=== PATIENT | male | born 1955 | race Caucasian/White ===

== ENCOUNTER 2024-10-30 17:28 | Inpatient (IN) | payer MEDICARE, OTHER, SELFPAY ==
[2024-10-30] VITALS (7 sets, daily range): BP systolic 117–139; BP diastolic 63–89; BMI 36.1; BMI 35.2
[2024-10-30 12:55] LABS: Urine Character Slightly Cloudy (Clear)
[2024-10-30 13:09] LABS: Urine Red Blood Cell 60-70 /HPF (0-2)
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
[2024-10-30 14:18] LABS: Hematocrit 44.8 % (39.0-52.0); Hemoglobin 15.5 g/dL (13.0-18.0); INR 0.99; Mean Corp Hgb Conc. 34.6 g/dL (33.0-37.0); Mean Corpuscular Volume 94.1 fL (80.0-94.0); Nucleated Red Blood Cells % 0 % (-); PT 13.4 Sec (11.4-14.6); Platelet Count 250 10^3/uL (130-400); Red Cell Dist. Width 13.1 % (11.5-14.5)
[2024-10-30 14:36] LABS: Blood Urea Nitrogen 32 mg/dl (9-20); Calcium 10.0 mg/dl (8.4-10.2); Carbon Dioxide 27 mmol/L (22-30); Chloride 106 mmol/L (98-107); Estimated Creatinine Clearance > 125 ml/min; Glucose 107 mg/dl (70-99); Sodium 137 mmol/L (135-145); eGFR > 60.00
[2024-10-30] MEDS: ZANAFLEX 8 MG PO (14:46)
--- NOTE | 2024-10-30 16:54 | HPS.HSE ---
Family Physician
-
Family Physician: NOT KNOW UNKNOWN - PT DOES
Chief Complaint
-
bladder spasm
hematuria.
History of Present Illness
69-year-old male with history of spinal cord injury with subsequent T9 paraplegia, neurogenic bladder, and diabetes presenting to the emergency department for hematuria. Patient reports over the weekend he has been having gross hematuria and
bladder spasms. he got colonoscopy last week, he had Downey in place for three days. he removed Downey on . He reports that he straight caths himself due to his neurogenic bladder about 4 times a day. For the past few days, has been having
to straight cath himself about every 3 hours due to bladder spasms and discomfort. Denies fever. Denies any significant pain to the abdomen or the back. Denies weakness or lightheadedness. denied chest pain, sob. denied abdominal pain,n,v,d.
positive UA in the ER. Downey placed in the ER. Received cefepime in the ER. Admitting for further med
Medical History
Past Medical History
Past Medical History: Reports Other
Additional Past Medical History:
Osteoporosis
Osteopenia
DVT
GERD
Paraplegia
Hypertension
Hypercholesterolemia
MSSA
Type 2 diabetes
Past Surgical History: Reports Other
Additional Past Surgical History:
Right shoulder replacement
Tricep tendon repair
Cholecystectomy
Penile implants
Social History
Tobacco: Former Smoker
Alcohol: None
Drug: None
Family History
Family History: Not pertinent
Allergies / Home Medications
Allergies reflects when Allergies were last updated in [facility].
Home Medications with original date entered in [facility]
Allergy/Medication List:
Allergies
Allergy/AdvReac Type Severity Reaction Status Date / Time
No Known Allergies Allergy Verified 10/30/24 12:34
Home Medications
diazepam 5 mg tablet 2.5 - 5 mg PO HSPRN PRN sleep 12/04/14
atorvastatin 40 mg tablet 40 mg PO HS High cholesterol 08/23/19
baclofen 10 mg tablet 5 mg PO Q6HPRN PRN spasm 08/23/19
duloxetine 60 mg capsule,delayed release 60 mg PO BID Mental Health/Anxiety 08/23/19
lamotrigine 100 mg tablet 100 mg PO BID Neurological Condition 08/23/19
methenamine hippurate 1 gram tablet 1 g PO BID Infection prevention 08/23/19
oxybutynin chloride 5 mg tablet 5 mg PO TID Urinary issue 08/23/19
tizanidine 4 mg tablet 8 mg PO BID@1100,1500 Muscle spasm/pain 08/23/19
zolpidem 10 mg tablet 10 mg PO HS Sleep 08/23/19
apixaban 5 mg tablet (Eliquis) 5 mg PO BID Blood clot prevention/tx 08/24/19
gabapentin 300 mg capsule 800 mg PO TID Neurological Condition 01/01/20
atenolol 25 mg tablet 25 mg PO DAILY #30 tabs 01/06/20
bupropion HCl 150 mg 24 hr tablet, extended release 150 mg PO DAILY Mental Health/Anxiety 05/05/20
cholecalciferol (vitamin D3) 50 mcg (2,000 unit) capsule (Vitamin D3) 50 mcg PO DAILY Supplement 05/05/20
lisinopril 20 mg-hydrochlorothiazide 12.5 mg tablet 1 ea PO DAILY Blood pressure 05/05/20
sitagliptin phos 100 mg-metformin ER 1,000 mg tablet,extend rel 24h mp (Janumet XR) 1 ea PO QPM Diabetes 05/05/20
tizanidine 4 mg tablet 16 mg PO HS Muscle spasms 05/05/20
Review of Systems
-
Constitutional: Reports No Symptoms
EENT: Reports No Symptoms
Respiratory: Reports No Symptoms
Cardiac: Reports No Symptoms
Abdomen/GI: Reports No Symptoms
: Reports Dark Urine
Musculoskeletal: Reports No Symptoms
Skin: Reports No Symptoms
Neurological: Reports No Symptoms
Endocrine: Reports No Symptoms
Hematologic/Lymphatic: Reports No Symptoms
Psych: Reports No Symptoms
Physical Exam
Vital Signs
Vital Signs
Temp Pulse Resp BP Pulse Ox
98.5 F 61 16 120/63 98
10/30/24 12:29 10/30/24 14:41 10/30/24 12:29 10/30/24 14:39 10/30/24 14:39
Physical Exam
General: Well Developed, Well Nourished and No Apparent Distress
HEENT: NormoCephalic, Moist mucous membranes and Atraumatic
Respiratory: Clear
Cardiac: S1/S2 and Regular Rhythm; No Murmur or Rub
GI: Soft, Non Tender, Non Distended and Normal Bowel Sounds; No Organomegaly
Rectal: Deferred by Provider
Musculoskeletal: No Clubbing, No Cyanosis and No Edema
Skin: No Rash
Neuro: AO x 3 and Nonfocal/grossly intact
Psych: Calm
Laboratory Results
-
10/30/24 13:58
10/30/24 13:58
Laboratory Results
PT 13.4 Sec (11.4-14.6) 10/30/24 13:58
INR 0.99 10/30/24 13:58
Total Bilirubin Cancelled 10/30/24 13:58
AST Cancelled 10/30/24 13:58
ALT Cancelled 10/30/24 13:58
Alkaline Phosphatase Cancelled 10/30/24 13:58
Data Reviewed
-
CT Scan: Report Reviewed by me
Lab Data: Labs Reviewed by me
Impression/Plan
-
# Hematuria secondary to UTI
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
- Downey placed in the ER
-IV cefepime continue
-Hold Eliquis
- CT abdomen pelvis with impression no acute intra-abdominal process identified.Right lower lobe 7 mm nodule. Minimally larger as compared to 2020, compatible with benign etiology. Hepatic fatty infiltration. Post cholecystectomy.Post partial
resection left colon with left-sided colostomy. No bowel obstruction.Urinary bladder decompressed with Downey catheter in position.
# History for splenic injury with lower extremities paraplegia
- Gabapentin continued
# Paroxysmal A-fib
- Obtain EKG
- Atenolol continued
- Hold Eliquis
# Hyperlipidemia
- Atorvastatin continued
# Anxiety
- Bupropion, duloxetine, Lamictal continued
- Diazepam continue for sleep
# Type 2 diabetes
- Sliding scale, CHO diet
- Hold Ozempic
# Essential hypertension
- Lisinopril/HCTZ continued
# Colostomy in place
# DVT prophylaxis SCDs
# CODE STATUS
- Full code
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
--- NOTE | 2024-10-30 17:39 | PHANOTE ---
MED REC NOTE PATIENT HAS NO ECW RECORDS, PDMP [facility], CALLED OVER FOR A MED LIST. PHARMACY THERE WILL FAX IT OVER TO [facility]. AWAITING FAX IF NO FAX WILL CALL BACK AND GET VERBAL OVER PHONE TO VERIFY GABAPENTIN AND
LISINOPRIL/HCTZ
[2024-10-30] MEDS: MAXIPIME 2000 MG IV (18:53)
--- NOTE | 2024-10-30 19:34 | CONS.URO ---
Consultation
-
Date/Time Consultation Performed: 1829
Performing Provider: Winnie
Reason for Consultation: Hematuria
Medical History
History of Present Illness
69M hx of spinal cord injury with subsequent T9 paraplegia, neurogenic bladder managed chronically with CIC, and diabetes presenting to the emergency department for hematuria.
He reports that he straight caths himself due to his neurogenic bladder about 4 times a day.
Managed in the past by Dr. Jesus
Patient reports over the weekend he has been having gross hematuria and bladder spasms.
He had a Jolley in place for three days around the time of a colonoscopy. Following colonoscopy he removed the Jolley on .
Starting Wednesday has been having to straight cath himself about every 3 hours due to bladder spasms and discomfort. This is consistent with prior episodes of UTI other than fever, which he denies
Denies any significant pain to the abdomen or the back. Denies weakness or lightheadedness. denied chest pain, sob. denied abdominal pain,n,v,d.
positive UA in the ER. Jolley placed in the ER to further assess hematuria
Received cefepime for presumed complicated UTI
CT showed no collection or abscess. No obstruction, catheter in place in decompressed bladder
Admitted by hospitalist
Urology consulted for hematuria which resolved quickly after catheter placement
AC on Eliquis which was held for colonoscopy but resumed after
Allergies/Home Medications
Allergies
Allergy/AdvReac Type Severity Reaction Status Date / Time
No Known Allergies Allergy Verified 10/30/24 12:34
Home Medications
�Medication �Instructions �Recorded �Confirmed �Type
diazepam 5 mg tablet 2.5 - 5 mg PO HSPRN PRN sleep 12/04/14 10/30/24 History
atorvastatin 40 mg tablet 40 mg PO HS High cholesterol 08/23/19 10/30/24 History
baclofen 10 mg tablet 5 mg PO Q6HPRN PRN spasm 08/23/19 10/30/24 History
duloxetine 60 mg capsule,delayed 60 mg PO DAILY Mental 08/23/19 10/30/24 History
release Health/Anxiety
lamotrigine 100 mg tablet 100 mg PO BID Neurological 08/23/19 10/30/24 History
Condition
methenamine hippurate 1 gram tablet 1 g PO BID Infection prevention 08/23/19 10/30/24 History
tizanidine 4 mg tablet 8 mg PO BID@1100,1500 Muscle 08/23/19 10/30/24 History
spasm/pain
zolpidem 10 mg tablet 10 mg PO HS Sleep 08/23/19 10/30/24 History
apixaban 5 mg tablet (Eliquis) 5 mg PO BID Blood clot 08/24/19 10/30/24 History
prevention/tx
gabapentin 300 mg capsule 1,200 mg PO HS Neurological 01/01/20 10/30/24 History
Condition
bupropion HCl 150 mg 24 hr tablet, 300 mg PO DAILY Mental 05/05/20 10/30/24 History
extended release Health/Anxiety
cholecalciferol (vitamin D3) 50 50 mcg PO DAILY Supplement 05/05/20 10/30/24 History
mcg (2,000 unit) capsule (Vitamin
D3)
tizanidine 4 mg tablet 16 mg PO HS Muscle spasms 05/05/20 10/30/24 History
atenolol 25 mg tablet 25 mg PO DAILY 10/30/24 10/30/24 History
gabapentin 600 mg tablet 600 mg PO BID 10/30/24 10/30/24 History
lisinopril 10 1 tab PO DAILY 10/30/24 10/30/24 History
mg-hydrochlorothiazide 12.5 mg
tablet
semaglutide 2 mg/dose (8 mg/3 mL) 2 mg SC MO 10/30/24 10/30/24 History
subcutaneous pen injector (Ozempic)
Physical Exam
Vital Signs
Vital Signs
Temp Pulse Resp BP Pulse Ox
98.1 F 66 18 139/89 100
10/30/24 18:54 10/30/24 18:54 10/30/24 18:54 10/30/24 18:00 10/30/24 18:54
Lab / Testing Results
Laboratory Results
10/30/24 13:58
10/30/24 13:58
Assessment / Plan
-
69M with paraplegia, neurogenic bladder managed on CIC
Admitted with gross hematuria and likely UTI
CT showing no obstructive uropathy or abscess
- Hematuria minimal, self limited and resolved after jolley placement
- Okay to continue anticoagulation
- Continue antibiotics pending urine culture
- Recommend 7-10 day total antibiotic course for complicated UTI
- Maintain jolley until day of expected discharge
- Resume CIC prior to discharge and would recommend 1-2 successful self caths after jolley removal to ensure no issues with immediately recurrent bleeding or cath difficulty
Advised reestablishing routine urology follow up for kidney surveillance and possible cystoscopy. Known to Dr. Jesus in the past
--- NOTE | 2024-10-30 20:00 | PTCARENOTE ---
10/31 1999: Pt arrived to unit from ED. floor covering installer assist x4 from stretcher to bed. VS stable upon admission. Pt is AAOx3, bed alarm in place due to high fall risk. No complaints of pain at this time. Plan of care reviewed with pt. Pt is oriented to
room with call chaudhry in reach.
[2024-10-30] MEDS: LAMICTAL 100 MG PO (20:23)
[2024-10-30 21:06] LABS: Glucose - Point of Care 176 mg/dl (70-99)
[2024-10-30] MEDS: ZANAFLEX 16 MG PO (22:10)
[2024-10-30] MEDS: AMBIEN 10 MG PO (22:10)
[2024-10-30] MEDS: NEURONTIN 1200 MG PO (22:10)
[2024-10-30] MEDS: LIPITOR 40 MG PO (22:11)
[2024-10-30] MEDS: STERILE WATER FOR INJECTION 10 ML IV (23:52)
[2024-10-30] MEDS: VALIUM 2.5 MG PO (23:52)
[2024-10-30] MEDS: MAXIPIME 1000 MG IV (23:53)
[2024-10-31] MEDS: TUMS CHEWABLE TABLET 200 MG PO (02:21)
[2024-10-31] MEDS: MAXIPIME 1000 MG IV (06:01)
[2024-10-31] MEDS: STERILE WATER FOR INJECTION 10 ML IV (06:01)
[2024-10-31 07:10] VITALS: BP 118/65
[2024-10-31 07:27] LABS: Glucose - Point of Care 141 mg/dl (70-99)
[2024-10-31] MEDS: NEURONTIN 600 MG PO (08:07)
[2024-10-31] MEDS: ORETIC 12.5 MG PO (08:07)
[2024-10-31] MEDS: LAMICTAL 100 MG PO (08:07)
[2024-10-31] MEDS: WELLBUTRIN XL (24 hour extended release) 150 MG PO (08:07)
[2024-10-31] MEDS: TENORMIN 25 MG PO (08:07)
[2024-10-31] MEDS: CYMBALTA DELAYED RELEASE 60 MG PO (08:07)
[2024-10-31] MEDS: ZESTRIL 20 MG PO (08:08)
--- NOTE | 2024-10-31 08:43 | W.PN.URO.CBU ---
Today's Communication / Plan
-
- Would be reasonable to discharge patient on empiric PO antibiotic course pending culture results - he says Bactrim has covered him well for UTI in the past
- If plan for discharge today, remove jolley and resume CIC
- Recommend 1-2 successful self caths after jolley removal and restarting Eliquis to ensure no issues with immediately recurrent bleeding or cath difficulty
Assessment / Plan
-
69M with paraplegia, neurogenic bladder managed on CIC
Admitted with gross hematuria and likely UTI
CT showing no obstructive uropathy or abscess
- Hematuria minimal, self limited and resolved after jolley placement
- Okay to resume anticoagulation
- Continue antibiotics pending urine culture
- Recommend 7-10 day total antibiotic course for complicated UTI
- Would be reasonable to discharge patient on empiric PO antibiotic course pending culture results - he says Bactrim has covered him well for UTI in the past
- If plan for discharge today, remove jolley and resume CIC
- Recommend 1-2 successful self caths after jolley removal and restarting Eliquis to ensure no issues with immediately recurrent bleeding or cath difficulty
Advised reestablishing routine urology follow up for kidney surveillance and possible cystoscopy in 1-2 mo
Diagnosis
-
Date of Service: October 31, 2024
-
Patient Diagnosis:
Neurogenic bladder
Gross hematuria
UTI
Post Op Day:
Subjective
-
no events overnight
feeling well
Objective
-
Vital Signs
Temp Pulse Resp BP Pulse Ox
97.7 F 63 16 118/65 98
10/31/24 07:10 10/31/24 07:10 10/31/24 07:10 10/31/24 07:10 10/31/24 07:10
Intake and Output
10/30/24 10/31/24 11/01/24
06:59 06:59 06:59
Output Total 700 / 700
Balance -700 / -700
Output:
Urine, Voided 700 / 700
Laboratory Results
10/30/24 13:58
Physical Exam
-
General - well developed, well nourished, no acute distress
Chest - clear
Abdomen - soft, non-tender
Genitalia - normal
Rectal - normal
Skin - warm & dry with no rash
Neuro - AOx3, no motor deficits
[2024-10-31 09:23] LABS: Hematocrit 44.1 % (39.0-52.0); Hemoglobin 15.5 g/dL (13.0-18.0); Mean Corp Hgb Conc. 35.1 g/dL (33.0-37.0); Mean Corpuscular Volume 94.4 fL (80.0-94.0); Platelet Count 248 10^3/uL (130-400); Red Cell Dist. Width 13.2 % (11.5-14.5)
[2024-10-31] MEDS: ELIQUIS 5 MG PO (09:34)
[2024-10-31 10:24] LABS: Glycohemoglobin (HgbA1c) 6.2 % (4.0-5.6)
[2024-10-31] MEDS: ZANAFLEX 8 MG PO (11:45)
[2024-10-31] MEDS: MAXIPIME IV (11:53)
[2024-10-31] MEDS: STERILE WATER FOR INJECTION IV (11:54)
[2024-10-31 12:02] LABS: Glucose - Point of Care 181 mg/dl (70-99)
--- NOTE | 2024-10-31 14:32 | CM ---
CM reviewed chart, patient seen bedside, initial assessment completed. Patient resides with his in [place] style home, ramp to enter, fully handicap accessible. Patient WC bound, current with [facility] through the [place], hx SN[facility] at [place] (2014 after shoulder replacement), [facility] (2020). [place] [facility] [place]. Patient denies insecurities at home. IMM verbally reviewed, provided with copy, placed in
chart. VM left for [facility] to obtain fax number. CM will continue to follow for all discharge planning needs.
Plan; return home with family, [facility] services through [facility] ([facility]).
[2024-10-31 15:35] VITALS: BP 118/59
--- NOTE | 2024-10-31 16:08 | W.PN.HOSP.TC ---
Today's Communication/Plan
-
remove jolley catheter
straight cath one time in hospital
discharge home after
Assessment / Plan
Assessment / Plan
CT abdomen pelvis
Right lower lobe 7 mm nodule. Minimally larger as compared to 2020, compatible with benign etiology. Hepatic fatty infiltration.
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 No bowel obstruction.Urinary bladder decompressed with Jolley catheter in position.
# Hematuria
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
-Patient has been requiring more frequent straight catheterization for last few days
-On Eliquis with history of A-fib
-Suspecting possible traumatic hematuria from straight catheterization
- Urology evaluated and recommended Jolley catheter to be removed and patient to have straight catheterization in hospital
#UTI
- UA showing pyuria and bacteria. No signs of sepsis
- Urine culture report pending
- Urology recommended for patient to be maintained on empiric bactrim at discharge.
# Paroxysmal A-fib
- Atenolol continued
- Eliquis resumed back.
# Hyperlipidemia
- Atorvastatin continued
# Generalized Anxiety disorder
- Bupropion, duloxetine, Lamictal continued
- Diazepam continue for sleep
# Type 2 diabetes
- Sliding scale, CHO diet
- Hold Ozempic
# Essential hypertension
- Lisinopril/HCTZ continued
# Colostomy in place
DVT prophylaxis SCDs
CODE STATUS - Full code
More than 30 minutes spent in discharge including
Final examination of the patient
Summarizing hospital stay
Instructions for continuing care to all relevant caregivers
Preparation of discharge records, prescriptions, and referral forms
Total time spent (in minutes): 39 mins
Anticipated Discharge: Today
Subjective/Interval History
-
Date of Service: October 31, 2024
Hematuria has resolved
No other complaints
Objective Data
-
Labs:
Laboratory Results
10/31/24
08:54
WBC 10.0
Hgb 15.5
Hct 44.1
Plt Count 248
Vital Signs:
Vital Signs
Temp Pulse Resp BP Pulse Ox
98.7 F 71 16 118/59 97
10/31/24 15:35 10/31/24 15:35 10/31/24 15:35 10/31/24 15:35 10/31/24 15:35
I&O
10/30/24 10/31/24 11/01/24
06:59 06:59 06:59
Intake Total 480 / 480
Output Total 700 / 700 550 / 550
Balance -700 / -700 -70 / -70
Review of Systems
-
Respiratory: Reports No Symptoms
Cardiac: Reports No Symptoms
Abdomen/GI: Reports No Symptoms
Physical Exam
-
General: Negative Appears in Distress
HEENT: Negative Oxygen
GI: Soft, Nontender and Nondistended
Genito-urinary: Jolley (Clear urine)
Neuro: Awake, Alert and Oriented
--- NOTE | 2024-11-02 15:50 | W.DCSUMMARY ---
Discharge Summary
Discharge Data
Date of Admission: 10/30/24
Date of Discharge: 10/31/24
-
Pending Results: No
Hospital Course
Discharging Physician : Dr Quinton Newell
Disposition : To home
Primary care physician : Dr Lionel Hoffman
Principal Discharge diagnosis :
Urinary tract infection
Hematuria
Chronic Discharge diagnosis :
History of neurogenic bladder requiring straight catheterization
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
Paroxysmal atrial fibrillation on Eliquis
Hyperlipidemia
Generalized anxiety disorder
Type 2 diabetes mellitus
Essential hypertension
Post diversion colostomy
History of sacral wound
Hospital Course :
Patient is a 69-year-old male with mentioned past medical history was brought in after patient was noted to having frequent need of straight catheterization and new incident of hematuria. CT abdomen pelvis done in ER showed stable finding with no
new urological abnormality. Patient was on Eliquis which was held and urology was consulted. Patient had placement of a Downey catheter in ER. Patient UA was showing pyuria and bacteriuria and patient was started on empiric antibiotics. Patient
had spontaneous resolution of hematuria without any further intervention and urology recommended for patient to have a voiding trial in the hospital. Patient was cleared to be put back on Eliquis. Patient was provided prescription for Bactrim with
a follow-up prescription for BMP to monitor for any new onset of renal dysfunction/hyperkalemia postdischarge. Patient was discharged home at this point.
Important imaging findings :
None
Procedure findings :
None
Discharge Plan
-
Patient Disposition: Home (Routine Discharge)
Discharge Diagnosis/Procedures: Hematuria due to straight catheterization
Condition: Fair
Diet: Regular
Activity: As tolerated
Driving Restrictions: No driving
Bathing Restrictions: OK to Shower
Referrals:
Lionel Hoffman MD [Family Provider, Family Practice] - in one week
Brant Zhou MD [Active, Urology]
Prescriptions:
New
sulfamethoxazole-trimethoprim [Bactrim DS] 800-160 mg tablet
1 tab PO BID Qty: 14 0RF
(DME) BMP
See Rx Instructions .Route .MEDSUPPLY Qty: 1 0RF
Rx Instructions:
BMP in 1 week:
Forward result to Primary care physician.
Continued
diazepam 5 MG tablet
2.5 - 5 mg PO HSPRN PRN (Reason: sleep)
Patient Comments:
10/30/24: last filled 10/12/24, 5 tabs for 5 days from [facility]
atorvastatin 40 MG tablet
40 mg PO HS
tizanidine 4 MG tablet
8 mg PO BID@1100,1500
methenamine hippurate 1 GRAM tablet
1 g PO BID
baclofen 10 MG tablet
5 mg PO Q6HPRN PRN (Reason: spasm)
zolpidem 10 MG tablet
10 mg PO HS
Patient Comments:
10/30/24: last filled 10/12/24, 30 tabs for 30 days from [facility]
lamotrigine 100 MG tablet
100 mg PO BID
duloxetine 60 MG capsule,delayed release(DR/EC)
60 mg PO DAILY
Eliquis 5 MG tablet
5 mg PO BID
gabapentin 300 MG capsule
1,200 mg PO HS
bupropion HCl 150 MG tablet extended release 24 hr
300 mg PO DAILY
cholecalciferol (vitamin D3) [Vitamin D3] 50 MCG capsule
50 mcg PO DAILY
tizanidine 4 MG tablet
16 mg PO HS
gabapentin 600 mg Tablet
600 mg PO BID
Ozempic 2 mg/dose (8 mg/3 mL) Pen Injector
2 mg SC MO
lisinopril-hydrochlorothiazide 10-12.5 mg Tablet
1 tab PO DAILY
atenolol 25 MG tablet
25 mg PO DAILY
Discharge Orders:
Discharge Patient (As Directed); Ordered 10/31/24
Ordered By: Quinton Newell
Discharge Date and Time
Discharge Date/Time: 10/31/24 16:44
Print Language: INDONESIAN
== END 2024-10-31 16:44 | disposition home health service (06) | DRG 699 ==
LOC: 4 WEST ACU 17:28
PROVIDERS: Emergency Medicine; Registered Nurse; ADMITTING PHYSICIAN Internal Medicine; ATTENDING PHYSICIAN Hospitalist; CONSULT PHYSICIAN Urology; EMERGENCY PHYSICIAN Student in an Organized Health Care Education/Training Program; FAMILY PHYSICIAN Family Medicine
DX: T83.518A Infection and inflammatory reaction due to other urinary catheter, initial encounter (principal); G37.3 Acute transverse myelitis in demyelinating disease of central nervous system; G82.20 Paraplegia, unspecified; N39.0 Urinary tract infection, site not specified; R31.0 Gross hematuria; E11.9 Type 2 diabetes mellitus without complications; N31.9 Neuromuscular dysfunction of bladder, unspecified; I10 Essential (primary) hypertension; M81.0 Age-related osteoporosis without current pathological fracture; E78.00 Pure hypercholesterolemia, unspecified; K21.9 Gastro-esophageal reflux disease without esophagitis; F41.9 Anxiety disorder, unspecified; I48.0 Paroxysmal atrial fibrillation; F41.1 Generalized anxiety disorder; N32.89 Other specified disorders of bladder; Y84.6 Urinary catheterization as the cause of abnormal reaction of the patient, or of later complication, without mention of misadventure at the time of the procedure; Y92.9 Unspecified place or not applicable; Y73.2 Prosthetic and other implants, materials and accessory gastroenterology and urology devices associated with adverse incidents; Z96.611 Presence of right artificial shoulder joint; Z87.440 Personal history of urinary (tract) infections; Z95.828 Presence of other vascular implants and grafts; Z79.01 Long term (current) use of anticoagulants; Z86.718 Personal history of other venous thrombosis and embolism; Z87.891 Personal history of nicotine dependence; Z90.49 Acquired absence of other specified parts of digestive tract; Z93.3 Colostomy status; Z79.85 Long-term (current) use of injectable non-insulin antidiabetic drugs; Z86.61 Personal history of infections of the central nervous system
CPT/HCPCS: 74177; 80048; 81003; 81015; 82962; 83036; 85025; 85027; 85610; 87070; 87086; 93005; 99285; Q9967

== ENCOUNTER → 2025-02-15 12:36 | Outpatient (REF) | payer MEDICARE, OTHER, SELFPAY | LOC: RAD 12:36 | PROVIDERS: ATTENDING PHYSICIAN Family Medicine | DX: Z96.611 Presence of right artificial shoulder joint (principal); M24.411 Recurrent dislocation, right shoulder | CPT/HCPCS: 73030 ==